=== PATIENT | female | born 1990 | race Caucasian/White ===

== ENCOUNTER 2021-01-24 19:27 | Outpatient (CLI) | payer OTHER ==
[~2021-01-24 19:27] MED LIST: AUGMENTIN 875-1 EACH PO
== END 2021-01-25 09:43 | disposition home or self-care (01) ==
LOC: GENOP 19:27
DX: O47.1 False labor at or after 37 completed weeks of gestation (principal); O26.853 Spotting complicating pregnancy, third trimester; O99.891 Other specified diseases and conditions complicating pregnancy; N89.8 Other specified noninflammatory disorders of vagina; O99.333 Smoking (tobacco) complicating pregnancy, third trimester; F17.200 Nicotine dependence, unspecified, uncomplicated; Z3A.37 37 weeks gestation of pregnancy
CPT/HCPCS: 81001; 83518; G0463

== ENCOUNTER 2021-01-31 16:36 | Emergency (ER) | payer OTHER ==
[~2021-01-31] VITALS: Ht 160 cm; Wt 55.8 kg
[2021-01-31 18:38] LABS: RED BLOOD COUNT 3.51 M/UL (4.00-5.10); WHITE BLOOD COUNT 13.7 K/UL (4.5-11.0)
[2021-01-31 19:14] LABS: BUN/CREATININE RATIO 16 (0-10)
== END 2021-01-31 21:30 | disposition home or self-care (01) ==
LOC: ER1 16:36
PROVIDERS: Student in an Organized Health Care Education/Training Program
DX: O98.513 Other viral diseases complicating pregnancy, third trimester (principal); U07.1 COVID-19; O99.333 Smoking (tobacco) complicating pregnancy, third trimester; F17.200 Nicotine dependence, unspecified, uncomplicated; Z23 Encounter for immunization; Z3A.37 37 weeks gestation of pregnancy
CPT/HCPCS: 71045; 80053; 81001; 82550; 82553; 83874; 84484; 85025; 85379; 93005; 99285; M0243; Q9967; U0002

== ENCOUNTER 2021-02-03 00:01 | Inpatient (IN) | payer OTHER ==
[2021-02-03 01:58] LABS: HEMOGLOBIN 11.2 gm/dl (12.3-15.3)
[2021-02-03 02:07] LABS: RED BLOOD COUNT 3.94 M/UL (4.00-5.10); WHITE BLOOD COUNT 7.6 K/UL (4.5-11.0)
[2021-02-03] MEDS ORDERED: IBUPROFEN600 MG PO (03:44)
[2021-02-03] MEDS ORDERED: COLACE 100MG C100 MG PO (03:44)
[2021-02-04 03:42] LABS: HEMOGLOBIN 8.3 gm/dl (12.3-15.3)
[2021-02-04] MEDS ORDERED: FERROUS SULFAT325 M2 PO (13:25)
== END 2021-02-04 15:35 | disposition home or self-care (01) | DRG 805 ==
LOC: GENOP 00:01 → OB 01:07
PROVIDERS: Obstetrics & Gynecology; ADMIT Obstetrics & Gynecology
PROC: 10E0XZZ Delivery of Products of Conception, External Approach (ICD-10-PCS; principal; 2021-02-03)
PROC: 3E0234Z Introduction of Serum, Toxoid and Vaccine into Muscle, Percutaneous Approach (ICD-10-PCS; 2021-02-03)
DX: O99.344 Other mental disorders complicating childbirth (principal); U07.1 COVID-19; Z37.0 Single live birth; O98.52 Other viral diseases complicating childbirth; F41.9 Anxiety disorder, unspecified; F31.9 Bipolar disorder, unspecified; O99.72 Diseases of the skin and subcutaneous tissue complicating childbirth; O99.52 Diseases of the respiratory system complicating childbirth; J45.909 Unspecified asthma, uncomplicated; D64.9 Anemia, unspecified; F17.200 Nicotine dependence, unspecified, uncomplicated; O99.02 Anemia complicating childbirth; Z3A.38 38 weeks gestation of pregnancy; Z23 Encounter for immunization
CPT/HCPCS: 36600; 80307; 81001; 82800; 85014; 85018; 85025; 86705; 90471; 90707; J2590; J2795; J3010; J7120

== ENCOUNTER 2021-10-12 17:21 | Inpatient (IN) | payer OTHER ==
[~2021-10-12] VITALS: Ht 157.5 cm; Wt 48.1 kg
[~2021-10-12 17:21] MED LIST changes: +COLACE 100MG C100 MG PO; +FERROUS SULFAT325 M2 PO; +IBUPROFEN600 MG PO
[2021-10-12 19:03] LABS: HEMOGLOBIN 12.7 gm/dl (12.3-15.3); RED BLOOD COUNT 4.71 M/UL (4.00-5.10); WHITE BLOOD COUNT 27.1 K/UL (4.5-11.0)
[2021-10-13 04:16] LABS: WHITE BLOOD COUNT 21.5 K/UL (4.5-11.0)
[2021-10-13 04:22] LABS: HEMOGLOBIN 10.5 gm/dl (12.3-15.3); RED BLOOD COUNT 3.94 M/UL (4.00-5.10)
[2021-10-13 04:32] LABS: BUN/CREATININE RATIO 16 (0-10)
--- NOTE | 2021-10-13 17:30 | NUR ---
PT GIVEN 500 CC OF NS BOLUS X1 PER MD ORDER. BP RECHECKED 1 HOUR LATER. BP IN [facility]OB[facility] WAS 80/63 MAP 67. BP IN LLE 87/[address] RODGERS NOTIFIED. SHE INSTRUCTED ME TO GIVE ANOTHER 500 CC NS BOLUS AND SHE WILL ORDER MORE LABS. PT AFEBRILE AT THIS TIME AND HR IS 90. WCTM.
[2021-10-14 07:33] LABS: BUN/CREATININE RATIO 15 (0-10)
[2021-10-14] MEDS ORDERED: LEVOFLOXACIN750 MG PO (19:27)
[2021-10-15 06:03] LABS: HEMOGLOBIN 9.5 gm/dl (12.3-15.3); RED BLOOD COUNT 3.61 M/UL (4.00-5.10)
[2021-10-15 06:46] LABS: WHITE BLOOD COUNT 12.1 K/UL (4.5-11.0)
[2021-10-15 06:50] LABS: BUN/CREATININE RATIO 17 (0-10)
--- NOTE | 2021-10-15 10:41 | NUR ---
patient receives lovenox injectiion for dvt
[2021-10-16 04:49] LABS: BUN/CREATININE RATIO 17 (0-10)
== END 2021-10-16 15:15 | disposition home or self-care (01) | DRG 872 ==
LOC: ER1 17:21 → CDU 22:18 → MED SURG 4 10-13 09:39
PROVIDERS: Internal Medicine; Physician Assistant; ADMIT Internal Medicine
DX: A41.9 Sepsis, unspecified organism (principal); N10 Acute pyelonephritis; E87.2 Acidosis; N17.9 Acute kidney failure, unspecified; R65.20 Severe sepsis without septic shock; Z20.822 Contact with and (suspected) exposure to COVID-19; E87.6 Hypokalemia; F15.10 Other stimulant abuse, uncomplicated; D50.9 Iron deficiency anemia, unspecified; F17.210 Nicotine dependence, cigarettes, uncomplicated; F19.10 Other psychoactive substance abuse, uncomplicated; Z82.49 Family history of ischemic heart disease and other diseases of the circulatory system; Z71.6 Tobacco abuse counseling
CPT/HCPCS: 36415; 80048; 80053; 80202; 80307; 81001; 82550; 82553; 83605; 83690; 84484; 84703; 85025; 85027; 87040; 87086; 93005; 96374; 96375; 96376; 99285; G0378; J0595; J0696; J1650; J1885; J2185; J2270; J2405; J3370; J7070; Q9967